=== PATIENT | female | born 1985 | race Caucasian/White ===

== ENCOUNTER 2017-10-14 02:32 | Emergency (ER) | payer OTHER ==
[~2017-10-14] VITALS: Ht 162.6 cm; Wt 54.4 kg
[2017-10-14] MEDS ORDERED: WELLBUTRIN SR150 MG (02:48)
[2017-10-14] MEDS ORDERED: NEURONTIN 300300 M1 (02:48)
[2017-10-14 03:05] LABS: URINE BILIRUBIN NEGATIVE (Negative); URINE BLOOD NEGATIVE (Negative); URINE CLARITY CLEAR; URINE COLOR YELLOW; URINE GLUCOSE-RANDOM NEGATIVE (Negative); URINE KETONES TRACE (Negative); URINE LEUKOCYTES-REFLEX NEGATIVE (Negative); URINE NITRITE-REFLEX NEGATIVE (Negative); URINE PROTEIN 1+ (Negative); URINE SPECIFIC GRAVITY >= 1.030 (1.005-1.030); URINE UROBILINOGEN 0.2 E.U./dl (0.2-1.0)
[2017-10-14 03:30] LABS: ABSOLUTE EOSINOPHILS 0.1 thou/uL (0.0-0.7); ABSOLUTE LYMPHOCYTES 0.9 thou/uL (0.8-5.3); ABSOLUTE MONOCYTES 0.6 thou/uL (0.0-1.2); BASOPHILS 0.3 %; HEMATOCRIT 34.6 % (37.0-47.0); HEMOGLOBIN 11.4 gm/dL (12.0-15.0); LYMPHOCYTES 14.1 %; MCH 26.7 pg (26.0-34.0); MCV 80.8 fL (80.0-100.0); MONOCYTES 8.5 %; MPV 7.9 fl. (7.2-11.1); NUCLEATED RBCS 0 /100WBC; PLATELET COUNT* 212 thou/uL (150-400); POLYS 76.1 %; RBC 4.28 mil/uL (4.20-5.00); RDW-CV 14.9 % (10.5-14.5); WBC 6.6 thou/uL (4.0-11.0)
[2017-10-14 03:39] LABS: CALCIUM 8.6 mg/dL (8.5-10.1); CREATININE 0.7 mg/dL (0.6-1.3); POTASSIUM 3.4 mmol/L (3.5-5.1)
[2017-10-14 03:39] LABS: AMP/METHAMP Negative (Negative); BARBITURATES Negative (Negative); BENZODIAZEPINES POSITIVE (Negative); COCAINE POSITIVE (Negative); METHADONE Negative (Negative); OPIATES Negative (Negative); PCP Negative (Negative); THC POSITIVE (Negative)
[2017-10-14 03:44] LABS: ALBUMIN 3.7 g/dL (3.4-5.0); TOTAL BILIRUBIN 0.3 mg/dL (<0.1-1.0); TOTAL PROTEIN 6.4 g/dL (6.4-8.2)
[2017-10-14] MEDS ORDERED: BACTRIM DS TAB1 EACH PO (05:07)
[2017-10-14] MEDS ORDERED: KEFLEX500 M1 PO (05:07)
[2017-10-14 05:18] VITALS: BP 133/80
--- NOTE | 2017-10-14 12:41 | EKG ---
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1985 Requested By: Ghada Whaley Order Number: [id number] MD: Garret Castillo Measurements Intervals [place] Rate: 92 P: 58 [place]: 155 QRS: 51 QRSD: 84 T: 58 QT: 376 QTc: 466 Interpretive Statements Sinus rhythm Probable left atrial enlargement Baseline wander in lead(s) V1,V2 No previous ECG available for comparison Electronically Signed On 10-14-2017 12:41:11 COMBATANT DIVER QUALIFIED by Garret Castillo [email or web address] <ELECTRONICALLY SIGNED> By: Garret Castillo MD, [facility] 10/14/17 1241 D: 01/326 032 Garret Castillo MD, FACC /EPI
== END 2017-10-14 06:04 | disposition home or self-care (01) ==
LOC: M.ERS 02:32
PROVIDERS: Emergency Medicine
DX: L03.113 Cellulitis of right upper limb (principal)

== ENCOUNTER 2021-04-12 23:25 | Emergency (ER) | payer OTHER ==
[~2021-04-12] VITALS: Ht 162.6 cm; Wt 59.0 kg
[~2021-04-12 23:25] MED LIST: BACTRIM DS TAB1 EACH PO; KEFLEX500 M1 PO; NEURONTIN 300300 M1; WELLBUTRIN SR150 MG
[2021-04-12] MEDS ORDERED: PROZAC40 MG PO (23:37)
[2021-04-12] MEDS ORDERED: ZYPREXA 5 MG TAB5 M1 PO (23:38)
[2021-04-13 02:36] VITALS: BP 149/79
--- NOTE | 2021-04-13 15:36 | EKG ---
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1985 Requested By: Ghada Whaley Order Number: [id number] MD: Keaton Hernandez Measurements Intervals [place] Rate: 101 P: 50 [place]: 121 QRS: 49 QRSD: 97 T: 48 QT: 350 QTc: 454 Interpretive Statements Sinus tachycardia Low voltage, precordial leads Baseline wander in lead(s) II,III,aVF,V3,V4 Compared to prior ECG Low QRS voltage now present Sinus rate has increased Electronically Signed On 04-13-2021 15:36:02 CDT by Keaton Hernandez [email or web address] <ELECTRONICALLY SIGNED> By: Keaton Hernandez MD, [facility] 04/13/21 1536 2343 2343 Keaton Hernandez MD, [facility] /EPI
== END 2021-04-13 02:36 | disposition home or self-care (01) ==
LOC: M.ERS 23:25
DX: F19.10 Other psychoactive substance abuse, uncomplicated (principal); F41.9 Anxiety disorder, unspecified; F17.210 Nicotine dependence, cigarettes, uncomplicated; G43.909 Migraine, unspecified, not intractable, without status migrainosus; Z79.899 Other long term (current) drug therapy

== ENCOUNTER 2021-06-07 09:06 | Emergency (ER) | payer OTHER ==
[~2021-06-07] VITALS: Ht 162.6 cm; Wt 54.4 kg
[~2021-06-07 09:06] MED LIST changes: +PROZAC40 MG PO; +ZYPREXA 5 MG TAB5 M1 PO
[2021-06-07 11:01] LABS: HEMATOCRIT 39.7 % (37.0-47.0); HEMOGLOBIN 12.4 gm/dL (12.0-15.0); MCH 23.3 pg (26.0-34.0); MCHC 31.3 g/dL (28.0-37.0); MCV 74.4 fL (80.0-100.0); MPV 7.5 fl. (7.2-11.1); RBC 5.34 mil/uL (4.20-5.00); RDW-CV 16.3 % (10.5-14.5); WBC 7.9 thou/uL (4.0-11.0)
[2021-06-07 11:12] LABS: CALCIUM 8.9 mg/dL (8.5-10.1); CREATININE 0.8 mg/dL (0.6-1.3)
[2021-06-07 11:43] VITALS: BP 134/72
--- NOTE | 2021-06-07 12:52 | EKG ---
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 : 1985 Requested By: Jeffrey Amin Order Number: [id number] MD: Cristhian Watts Measurements Intervals [place] Rate: 84 P: 43 [place]: 144 QRS: 38 QRSD: 83 T: 47 QT: 352 QTc: 417 Interpretive Statements Sinus rhythm Baseline wander in lead(s) II,aVF Compared to ECG 04/12/2021 23:43:20 Sinus tachycardia no longer present Electronically Signed On 06-07-2021 12:52:26 CDT by Cristhian Watts [email or web address] <ELECTRONICALLY SIGNED> By: Cristhian Watts MD, FACC 06/07/21 1252 7 7 Cristhian Watts MD, [facility] /EPI
== END 2021-06-07 11:44 | disposition home or self-care (01) ==
LOC: M.ERS 09:06
PROVIDERS: Emergency Medicine Emergency Medical Services
DX: F41.0 Panic disorder [episodic paroxysmal anxiety] (principal); R44.3 Hallucinations, unspecified; G43.909 Migraine, unspecified, not intractable, without status migrainosus; F19.10 Other psychoactive substance abuse, uncomplicated; F17.210 Nicotine dependence, cigarettes, uncomplicated; Z79.899 Other long term (current) drug therapy

== ENCOUNTER 2021-09-25 12:26 | Emergency (ER) | payer OTHER ==
[~2021-09-25] VITALS: Ht 162.6 cm; Wt 59.0 kg
[2021-09-25 14:00] VITALS: BP 105/53
[2021-09-25 14:04] LABS: URINE BILIRUBIN NEGATIVE (Negative); URINE BLOOD TRACE (Negative); URINE CLARITY CLEAR; URINE COLOR YELLOW; URINE GLUCOSE-RANDOM NEGATIVE (Negative); URINE KETONES NEGATIVE (Negative); URINE LEUKOCYTES-REFLEX TRACE (Negative); URINE NITRITE-REFLEX NEGATIVE (Negative); URINE PROTEIN NEGATIVE (Negative); URINE SPECIFIC GRAVITY <= 1.005 (1.005-1.030); URINE UROBILINOGEN 0.2 E.U./dl (0.2-1.0)
[2021-09-25 14:11] LABS: AMP/METHAMP POSITIVE (Negative); BARBITURATES Negative (Negative); BENZODIAZEPINES Negative (Negative); COCAINE Negative (Negative); METHADONE Negative (Negative); OPIATES Negative (Negative); PCP Negative (Negative); THC POSITIVE (Negative)
[2021-09-25 14:21] LABS: CASTS None Seen /LPF (None Seen); SQUAMOUS 4-10 Moderate /LPF (0-3)
[2021-09-25 14:22] LABS: BACTERIA-REFLEX 1-9 Few /HPF (None Seen); CRYSTALS None Seen /LPF (None Seen); URINE RBC 0-2 Rare /HPF (0-2); URINE WBC-REFLEX 0-5 Rare /HPF (0-5)
--- NOTE | 2021-09-26 10:04 | EKG ---
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: WILL : 1985 Requested By: Crystal Molina Order Number: [id number] MD: Garret Castillo Measurements Intervals [place] Rate: 109 P: 54 [place]: 119 QRS: 56 QRSD: 78 T: 55 QT: 310 QTc: 418 Interpretive Statements Sinus tachycardia Probable left atrial enlargement Compared to ECG 06/07/2021 09:18:46 Sinus rhythm no longer present Electronically Signed On 09-26-2021 10:04:38 MEDICINE TEACHER by Garret Castillo [email or web address] <ELECTRONICALLY SIGNED> By: Garret Castillo MD, [facility] 09/26/21 1004 1230 1230 Garret Castillo MD, [facility] /EPI
== END 2021-09-25 14:00 | disposition left against medical advice (07) ==
LOC: M.ERS 12:26
PROVIDERS: Nurse Practitioner Family
DX: N39.0 Urinary tract infection, site not specified (principal); R07.89 Other chest pain; R00.0 Tachycardia, unspecified; G43.909 Migraine, unspecified, not intractable, without status migrainosus; F17.210 Nicotine dependence, cigarettes, uncomplicated